=== PATIENT | female | born 1995 | race Asian ===

== ENCOUNTER 2018-05-15 | Emergency (ER) | payer OTHER ==
--- NOTE | 2018-05-15 00:27 | ED ---
Head Injury - HPI Summary HPI Summary: 23 year old female presents with head injury today. States she turned a corner and ran into a wall. She denies loss consciousness. No nausea or vomiting. No dizziness. She states the pain is 4 out of 10. Denies any change in vision. No photophobia. No difficulties concentrating. Denies any neck pain. No other injury. She does have a superficial laceration to her forehead. There is no active bleeding. Tetanus up-to-date. No medical conditions. - History Of Current Complaint Chief Complaint: EDHeadInjury Stated Complaint: RAN INTO A BRICK WALL PER PT. Time Seen by Provider: 05/15/18 00:12 Pain Intensity: 5 - Allergies/Home Medications Allergies/Adverse Reactions: Allergies Allergy/AdvReac Type Severity Reaction Status Date / Time No Known Allergies Allergy Verified 05/15/18 00:03 PMH/Surg Hx/FS Hx/Imm Hx Endocrine/Hematology History: Denies: Hx Anticoagulant Therapy Respiratory History: Denies: Hx Asthma Infectious Disease History: No Infectious Disease History: Denies: Traveled Outside the [place] in Last 30 Days - Family History Known Family History: Positive: Non-Contributory Negative: Seizure Disorder - Social History Substance Use Type: Reports: None Smoking Status (MU): Never Smoked Tobacco Review of Systems Negative: Fever Negative: Chest Pain Negative: Shortness Of Breath Negative: Vomiting, Nausea Positive: Headache All Other Systems Reviewed And Are Negative: Yes Physical Exam Triage Information Reviewed: Yes Vital Signs On Initial Exam: Initial Vitals Temp Pulse Resp BP Pulse Ox 99.1 F 66 16 113/81 100 05/15/18 00:01 05/15/18 00:01 05/15/18 00:01 05/15/18 00:01 05/15/18 00:01 Vital Signs Reviewed: Yes Appearance: Positive: Well-Appearing Skin: Positive: Warm, Dry, Other - 1cm superficial laceration to forehead Head/Face: Positive: Other - contusion to forehead, no step off, racoon eyes, nichole sign Eyes: Positive: Normal, EOMI, NORMA, Conjunctiva Clear ENT: Positive: Normal ENT inspection, Pharynx normal, TMs normal Neck: Positive: Other: - nontender neck Respiratory/Lung Sounds: Positive: Clear to Auscultation, Breath Sounds Present Cardiovascular: Positive: Normal, RRR Abdomen Description: Positive: Nontender, Soft Bowel Sounds: Positive: Present Musculoskeletal: Positive: Normal Neurological: Positive: Sensory/Motor Intact, Alert, Oriented to Person Place, Time, CN Intact II-III, Finger to Nose Psychiatric: Positive: Normal Procedures - Laceration/Wound Repair 1 Location: head Description: Linear Length, Depth and Shape: 1cm superficial Irrigated w/ Saline (ccs): 30 Closure: Skin Adhesive Diagnostics - Vital Signs Vital Signs Temp Pulse Resp BP Pulse Ox 05/15/18 00:01 99.1 F 66 16 113/81 100 - Laboratory Lab Statement: Any lab studies that have been ordered have been reviewed, and results considered in the medical decision making process. Head Injury Course/Dx Course Of Treatment: 23 year old female presents with head injury today. States she turned a corner and ran into a wall. She denies loss consciousness. No nausea or vomiting. No dizziness. She states the pain is 4 out of 10. Denies any change in vision. No photophobia. No difficulties concentrating. Denies any neck pain. No other injury. She does have a superficial laceration to her forehead. There is no active bleeding. Tetanus up-to-date. No medical conditions. On exam normal neuro exam. Has contusion noted to forehead. Has superficial laceration that cleaned and placed glue on. Normal neuro exam. According to [place] CT rules does not need head imaging. Gave concussion precautions. Told follow-up José. Patient understands agrees plan. - Diagnoses Differential Diagnosis/HQI/PQRI: Concussion Without LOC, Contusion, Intracranial Bleed Provider Diagnoses: Head injury, Facial laceration Discharge - Sign-Out/Discharge Documenting (check all that apply): Patient Departure Patient Received Moderate/Deep Sedation with Procedure: No - Discharge Plan Condition: Good Disposition: HOME Patient Education Materials: Head Injury (ED), Skin Adhesive Care (ED) Forms: *School Release Referrals: JOSÉ Catherine [[employer], APPLICATION, OTHER] - Additional Instructions: Place ice on area as needed Take Tylenol or ibuprofen for headache every 6 hours Modify activities as tolerated glue will fall off on own, avoid scrubbing area Follow up with josé Return to ED if develop vomiting, severe headache, or any new or worsening symptoms - Billing Disposition and Condition Condition: GOOD Disposition: Home
[2018-05-15 00:41] VITALS: BP 109/66
== END 2018-05-15 00:41 | disposition home or self-care (01) ==
LOC: ED
DX: S09.90XA Unspecified injury of head, initial encounter (principal); S01.81XA Laceration without foreign body of other part of head, initial encounter; W22.01XA Walked into wall, initial encounter; Y93.02 Activity, running; Y92.9 Unspecified place or not applicable
CPT/HCPCS: 12011; 99282

== ENCOUNTER 2019-05-08 22:38 | Emergency (ER) | payer OTHER ==
--- NOTE | 2019-05-08 23:20 | ED ---
Psychiatric Complaint - HPI Summary HPI Summary: This pt is a 24 Y/O F presenting to [facility] as a 941 per EMS. She states that she was in an argument with her ex-boyfriend about moving home due to COVID-19. She states that they have been growing apart and are unable to go home due to the virus for fear of endangering people they are close to. She states that she has not had time to consider her own personal health due to stress in multiple [employer] groups. She states that her family wants her home but she states that flying from here back home would not be beneficial. She states that she was not aware of her own mental decline. Theyre argument got out of hand and she states that she had been drinking before the argument and wanted the argument to stop and her life could pause for a little bit. She states that she told her ex-boyfriend I want to kill myself. She states that she acknowledges that it was immature and states that she just wanted them to stop fighting. She states that someone overheard and reported it to the police. She states that she has many immunocompromised people at home and is worried about bringing anything into the family. She currently denies any SI, HI, fevers, chills, headaches, SOB , N/V, and headaches. She states that she has a PMHx of hypercholesterolemia. She states that if she had any thoughts of suicide or self-harm she will call the hospital for help immediately. - History Of Current Complaint Chief Complaint: EDMentalHealth Time Seen by Provider: 05/08/19 22:51 Hx Obtained From: Patient ?: No Onset/Duration: Sudden Onset, Resolved Timing: Constant Severity Initially: Moderate Severity Currently: Moderate Character: Anxious Aggravating Factor(s): Recent Stress Alleviating Factor(s): Other - states that once she was able to think about everything she was able to calm down. Associated Signs And Symptoms: Positive: Negative - SI, HI, fevers, chills, headaches, SOB, N/V, and headaches Has Suicidal: Denies: Thoughts, With A Plan Has Homicidal: Denies: Thoughts, With A Plan Recent Stressor(s): COVID-19 outbreak, [employer], relationship - Allergies/Home Medications Allergies/Adverse Reactions: Allergies Allergy/AdvReac Type Severity Reaction Status Date / Time No Known Allergies Allergy Verified 05/15/18 00:03 PMH/Surg Hx/FS Hx/Imm Hx Previously Healthy: Yes Endocrine/Hematology History: Denies: Hx Anticoagulant Therapy, Hx Diabetes Cardiovascular History: Reports: Hx Hypercholesterolemia Denies: Hx Hypertension Respiratory History: Denies: Hx Asthma - Cancer History Hx Chemotherapy: No Hx Radiation Therapy: No - Surgical History Surgical History: None - Immunization History Immunizations Up to Date: Yes Infectious Disease History: No Infectious Disease History: Denies: Traveled Outside the [place] in Last 30 Days - Family History Known Family History: Negative: Diabetes, Seizure Disorder - Social History Occupation: [employer] Lives: Dormitory/Roommates Alcohol Use: Occasionally Hx Substance Use: No Substance Use Type: Reports: None Hx Tobacco Use: No Smoking Status (MU): Never Smoked Tobacco Review of Systems Negative: Fever, Chills Negative: Chest Pain Negative: Shortness Of Breath Negative: Vomiting, Nausea Negative: Headache Psychological: Other - anxiety NEGATIVE: SI and HI All Other Systems Reviewed And Are Negative: Yes Physical Exam - Summary Physical Exam Summary: Appearance: Well-appearing, Well-nourished, lying in bed comfortable Skin: Warm, dry, no obvious rash Eyes: sclera anicteric, no conjunctival pallor ENT: mucous membranes moist Neck: deferred Respiratory: No signs of respiratory distress Cardiovascular: Appears well perfused, pulses are nml Abdomen: deferred Musculoskeletal: Moving all 4 extremities without obvious discomfort Neurological: Awake and alert, mentation is normal, speech is fluent and appropriate Psychiatric: affect is normal, does not appear anxious or depressed Triage Information Reviewed: Yes Vital Signs On Initial Exam: Initial Vitals Temp Pulse Resp BP Pulse Ox 98.5 F 101 15 118/75 98 05/08/19 22:51 05/08/19 22:51 05/08/19 22:51 05/08/19 22:51 05/08/19 22:51 Vital Signs Reviewed: Yes Procedures - Sedation Patient Received Moderate/Deep Sedation with Procedure: No Diagnostics - Vital Signs Vital Signs Temp Pulse Resp BP Pulse Ox 05/08/19 22:51 98.5 F 101 15 118/75 98 - Laboratory Lab Statement: Any lab studies that have been ordered have been reviewed, and results considered in the medical decision making process. Course/Dx - Course Course Of Treatment: This pt is a 24 Y/O F presenting to [facility] as a 941 per EMS. She states that she was in an argument with her ex-boyfriend about moving home due to COVID-19. She states that they have been growing apart and are unable to go home due to the virus for fear of endangering people they are close to. She states that she has not had time to consider her own personal health due to stress in multiple [employer] groups. She states that her family wants her home but she states that flying from here back home would not be beneficial. She states that she was not aware of her own mental decline. They re argument got out of hand and she states that she had been drinking before the argument and wanted the argument to stop and her life could pause for a little bit. She states that she told her ex-boyfriend I want to kill myself. She states that she acknowledges that it was immature and states that she just wanted them to stop fighting. She states that someone overheard and reported it to the police. She states that she has many immunocompromised people at home and is worried about bringing anything into the family. She has no acute abnormalities on her PE. She will be discharged with a Dx of SI. She stated that if she has an SI, HI or thoughts of self-harm she will call for help. She is of sound and stable mind at this time and has no need for a MHE. she has no prior history of suicidal ideations or related mental health issues. - Differential Dx/Clinical Impression Provider Diagnosis: Suicide ideation Discharge ED - Sign-Out/Discharge Documenting (check all that apply): Patient Departure - discharge - Discharge Plan Condition: Good Disposition: HOME Patient Education Materials: Suicide Prevention (ED) Referrals: [facility] [Outside] - If Needed - Billing Disposition and Condition Condition: GOOD Disposition: Home - Attestation Statements Document Initiated by Don: Yes Documenting Scribe: Jason Bauman Provider For Whom Don is Documenting (Include Credential): Vance Alfonso MD Scribe Attestation: Jason Hernandez, nelyed for Vance Alfonso MD on 05/09/19 at 0650. Scribe Documentation Reviewed: Yes Provider Attestation: The documentation as recorded by the Jason roper accurately reflects the service I personally performed and the decisions made by me, Vance Alfonso MD Status of Scribe Document: Viewed
[2019-05-08 23:43] VITALS: BP 0/0
== END 2019-05-08 23:42 | disposition home or self-care (01) ==
LOC: ED 22:38
DX: R45.851 Suicidal ideations (principal); E78.00 Pure hypercholesterolemia, unspecified
CPT/HCPCS: 99282